=== PATIENT | female | born 1990 | race American Indian/Alaskan Native ===

== ENCOUNTER 2020-07-20 08:57 | Emergency (ER) | payer MEDICAID ==
--- NOTE | 2020-07-20 09:33 | Event Note ---
ED Screening Note Date of service: 07/20/20 Time: 09:29 ED Screening Note: 30-year-old female presents to the ER today complaint of vaginal bleeding. Patient states that last menstrual cycle was sometime in May. She missed her June menstrual cycle and therefore took a home test. She states that she had 2+ home test. Based on a menstrual cycle/ after she is approximately 5 weeks . She also went to [facility] a couple days ago and had a confirmed urine test. She states that her bleeding started yesterday morning around 5 AM. She describes it as similar to a menstrual cycle with small clots. She reports associated mild intermittent cramping. She is G4, P3 Ab0. This initial assessment/diagnostic orders/clinical plan/treatment(s) is/are subject to change based on patients health status, clinical progression and re-assessment by fellow clinical providers in the ED. Further treatment and workup at subsequent clinical providers discretion. Patient/guardian urged not to elope from the ED as their condition may be serious if not clinically assessed and managed. Initial orders include: CBC, CMP, quant hCG, urinalysis, RhoGam work-up
--- NOTE | 2020-07-20 10:12 | Emergency Department Report ---
ED General Adult HPI - General Chief complaint: Vaginal Bleeding Stated complaint: VAGINAL BLEEDING Time Seen by Provider: 07/20/20 09:25 Source: patient Mode of arrival: Ambulatory Limitations: No Limitations - History of Present Illness Initial comments: Patient is a 30-year-old female who was last menstrual cycle was 5 weeks ago who presents to the emergency department for evaluation of vaginal bleeding since 3 Kwesi yesterday. Patient notes blood and clots, states she took 3 tests which were all positive several days ago, then took 2 more yesterday which were both negative. Patient denies abdominal pain, denies nausea vomiting diarrhea, denies fever, denies dysuria patient is G4, P3 - Related Data Allergies Allergy/AdvReac Type Severity Reaction Status Date / Time No Known Allergies Allergy Unverified 07/20/20 09:01 ED Review of Systems ROS: Stated complaint: VAGINAL BLEEDING Other details as noted in HPI Comment: All other systems reviewed and negative ED Past Medical Hx - Past Medical History Previous Medical History?: No - Surgical History Past Surgical History?: No - Social History Smoking Status: Never Smoker Substance Use Type: None ED Physical Exam - General Limitations: No Limitations General appearance: alert, in no apparent distress - Head Head exam: Present: atraumatic, normocephalic - Eye Eye exam: Present: normal appearance - ENT ENT exam: Present: mucous membranes moist - Neck Neck exam: Present: normal inspection - Respiratory Respiratory exam: Present: normal lung sounds bilaterally. Absent: respiratory distress - Cardiovascular Cardiovascular Exam: Present: regular rate, normal rhythm. Absent: systolic murmur, diastolic murmur, rubs, gallop - GI/Abdominal GI/Abdominal exam: Present: soft, normal bowel sounds - Extremities Exam Extremities exam: Present: normal inspection - Back Exam Back exam: Present: normal inspection - Neurological Exam Neurological exam: Present: alert, oriented X3 - Psychiatric Psychiatric exam: Present: normal affect, normal mood - Skin Skin exam: Present: warm, dry, intact, normal color. Absent: rash ED Course Vital Signs 07/20/20 07/20/20 09:04 12:06 Temperature 98.1 F 98.2 F Pulse Rate 63 61 Respiratory 18 16 Rate Blood Pressure 118/81 Blood Pressure 121/72 [Right] O2 Sat by Pulse 100 100 Oximetry - Reevaluation(s) Reevaluation #1: 07/20/20 12:26 Patient reevaluated and remains no acute distress, abdomen remains soft nontender, discussed results at length with patient explaining she likely had miscarriage but confirmatory ultrasound and beta quantitative value are necessary in 48 to 72 hours. Patient states she assumed this to be the case given history of test taking at home associate with symptoms but will follow up. ED Medical Decision Making - Lab Data Result diagrams: 07/20/20 11:18 07/20/20 11:18 Labs 07/20/20 07/20/20 07/20/20 10:23 11:18 11:18 WBC 4.0 L RBC 4.05 Hgb 12.6 Hct 37.8 MCV 94 MCH 31 MCHC 33 RDW 13.7 Plt Count 350 Lymph % (Auto) 46.8 H [place] % (Auto) 7.0 Eos % (Auto) 0.7 Baso % (Auto) 0.8 Lymph # (Auto) 1.9 [place] # (Auto) 0.3 Eos # (Auto) 0.0 Baso # (Auto) 0.0 Seg Neutrophils % 44.7 Seg Neutrophils # 1.8 Sodium 138 Potassium 4.0 Chloride 105.3 Carbon Dioxide 26 Anion Gap 11 BUN 8 Creatinine 0.7 Estimated GFR > 60 BUN/Creatinine Ratio 11 Glucose 96 Calcium 8.6 Total Bilirubin 0.30 AST 15 ALT 10 Alkaline Phosphatase 80 Total Protein 7.5 Albumin 4.2 Albumin/Globulin Ratio 1.3 HCG, Quant Urine Color Grisel Urine Turbidity Cloudy Urine pH 5.0 Ur Specific [place] 1.026 Urine Protein 100 mg/dl Urine Glucose (UA) Neg Urine Ketones 20 Urine Blood Lg Urine Nitrite Neg Urine Bilirubin Neg Urine Urobilinogen < 2.0 Ur Leukocyte Esterase Neg Urine WBC (Auto) 4.0 Urine RBC (Auto) > 182.0 U Epithel Cells (Auto) 15.0 H Urine Bacteria (Auto) 1+ Urine Mucus 3+ Blood Type Screen 07/20/20 07/20/20 11:18 11:18 WBC RBC Hgb Hct MCV MCH MCHC RDW Plt Count Lymph % (Auto) [place] % (Auto) Eos % (Auto) Baso % (Auto) Lymph # (Auto) [place] # (Auto) Eos # (Auto) Baso # (Auto) Seg Neutrophils % Seg Neutrophils # Sodium Potassium Chloride Carbon Dioxide Anion Gap BUN Creatinine Estimated GFR BUN/Creatinine Ratio Glucose Calcium Total Bilirubin AST ALT Alkaline Phosphatase Total Protein Albumin Albumin/Globulin Ratio HCG, Quant 3.03 Urine Color Urine Turbidity Urine pH Ur Specific [place] Urine Protein Urine Glucose (UA) Urine Ketones Urine Blood Urine Nitrite Urine Bilirubin Urine Urobilinogen Ur Leukocyte Esterase Urine WBC (Auto) Urine RBC (Auto) U Epithel Cells (Auto) Urine Bacteria (Auto) Urine Mucus Blood Type B POSITIVE Screen TNR Vital Signs 07/20/20 07/20/20 09:04 12:06 Temperature 98.1 F 98.2 F Pulse Rate 63 61 Respiratory 18 16 Rate Blood Pressure 118/81 Blood Pressure 121/72 [Right] O2 Sat by Pulse 100 100 Oximetry Critical care attestation.: If time is entered above; I have spent that time in minutes in the direct care of this critically ill patient, excluding procedure time. ED Disposition Clinical Impression: Vaginal bleeding during Disposition: DC-01 TO HOME OR SELFCARE Is pt being admited?: No Condition: Stable Instructions: Miscarriage Additional Instructions: Follow-up with [facility] in 1 to 2 days for reevaluation and repeat blood work. Please note while you likely had a miscarriage, this cannot be proven without follow-up visit. Return to the emergency department for worsening symptoms. Referrals: PRIMARY CAREMD [Primary Care Provider] - 3-5 Days
[2020-07-20 10:38] LABS: Bacteria,Urine 1+ /HPF (Negative); Bilirubin,Urine NEG (Negative); Blood,Urine LG (Negative); Color,Urine Amber (Yellow); Mucus,Urine 3+ /HPF; Urobilinogen,Urine < 2.0 mg/dL (<2.0)
[2020-07-20 10:39] LABS: RBC,Urine > 182.0 /HPF (0.0-6.0)
--- NOTE | 2020-07-20 11:43 | Ultrasound Report ---
ULTRASOUND OBSTETRIC INDICATION / CLINICAL INFORMATION: VAG BLEEDING. TECHNIQUE: Transabdominal and Transvaginal. COMPARISON: None available. FINDINGS: No IUP visualized. Individual stripe measures 9 mm. ADNEXA: No significant abnormality. FREE FLUID: None. ADDITIONAL FINDINGS: None. IMPRESSION: 1. No visualized IUP. Follow-up beta-hCG and ultrasound recommended Signer Name: Watson Wolfe MD Signed: 07/20/2020 11:38 AM Workstation Name: [email or web address]
[2020-07-20 11:45] LABS: Basophils % (Auto) 0.8 % (0.0-1.8); Eosinophils % (Auto) 0.7 % (0.0-4.3); Hematocrit 37.8 % (30.3-42.9); Hemoglobin 12.6 gm/dl (10.1-14.3); Lymphocytes # (Auto) 1.9 K/mm3 (1.2-5.4); Lymphocytes % (Auto) 46.8 % (13.4-35.0); Mean Corpuscular HGB Conc 33 % (30-34); Mean Corpuscular Volume 94 fl (79-97); Monocytes # (Auto) 0.3 K/mm3 (0.0-0.8); Platelet Count 350 K/mm3 (140-440); Red Blood Count 4.05 M/mm3 (3.65-5.03); Red Cell Distribution Width 13.7 % (13.2-15.2)
[2020-07-20 12:06] LABS: Alanine Aminotransferase 10 units/L (7-56); Albumin 4.2 g/dL (3.9-5); Blood Urea Nitrogen 8 mg/dL (7-17); Calcium 8.6 mg/dL (8.4-10.2); Hemolysis Index 2
[2020-07-20 12:07] LABS: BUN/Creatinine Ratio 11
[2020-07-20 12:11] VITALS: BP 121/72
== END 2020-07-20 12:38 | disposition home or self-care (01) ==
LOC: ED 08:57
DX: O20.9 Hemorrhage in early pregnancy, unspecified (principal); Z3A.00 Weeks of gestation of pregnancy not specified
CPT/HCPCS: 36415; 76801; 76817; 80053; 81001; 84702; 85025; 85461; 86850; 86900; 86901

== ENCOUNTER 2020-12-02 22:05 | Emergency (ER) | payer MEDICAID ==
[2020-12-02 22:18] VITALS: BP 116/77
[2020-12-03] MEDS ORDERED: IBUPROFEN 800 MG TAB PO ONE (02:51)
[2020-12-03] MEDS ORDERED: TETANUS,DIPH,PERTUSS(ACELL) VACCINE 0.5 ML SYRINGE IM ONE (02:51)
[2020-12-03] MEDS ORDERED: ACETAMINOPHEN 500 MG TAB PO ONE (02:51)
[2020-12-03] MEDS ORDERED: LIDOCAINE (1%) 10 MG/1 ML VIAL 20 ML MDV INFILTRATI ONE (03:25)
[2020-12-03] MEDS ORDERED: NEOMY 3.5 MG/BACIT 400 UNITS/POLY B 5000 UNITS/GM OINT PACKET TP ONE (03:25)
--- NOTE | 2020-12-03 03:40 | Emergency Department Report ---
ED General Adult HPI - General Chief complaint: Laceration/Recheck/Suture Stated complaint: RT WRIST LACERATION Time Seen by Provider: 12/03/20 02:51 Source: patient Mode of arrival: Ambulatory Limitations: No Limitations - History of Present Illness Initial comments: 30-year-old [id number] female patient presents emergency department complaints of a laceration to her right wrist occurring tonight. Patient states she became frustrated and punched a mirror. No other injuries. Cannot recall last tetanus immunization. No medications prior to arrival. Denies headache, neck pain, shoulder pain, elbow pain, arm pain, paresthesias, numbness. Denies all other complaints at this time. Severity scale (0 -10): 3 - Related Data Previous Rx's Medication Instructions Recorded Last Taken Type Mupirocin [Bactroban 2%] 1 applic TP TID #1 tube 12/03/20 Unknown Rx Naproxen 500 mg PO BID #20 tablet 12/03/20 Unknown Rx Allergies Allergy/AdvReac Type Severity Reaction Status Date / Time No Known Allergies Allergy Unverified 07/20/20 09:01 ED Review of Systems ROS: Stated complaint: RT WRIST LACERATION Other details as noted in HPI Other: GENERAL: Negative for fever. CARDIOVASCULAR: Negative for chest pain. PULMONARY: Negative for shortness of breath. GASTROINTESTINAL: Negative for abdominal pain. MUSCULOSKELETAL: Negative for back pain. NEUROLOGICAL: Negative for headache. INTEGUMENTARY: Positive for laceration. ED Past Medical Hx - Past Medical History Previous Medical History?: No - Surgical History Past Surgical History?: No - Social History Smoking Status: Never Smoker Substance Use Type: None - Medications Home Medications: Home Medications Medication Instructions Recorded Confirmed Last Taken Type Mupirocin [Bactroban 2%] 1 applic TP TID #1 tube 12/03/20 Unknown Rx Naproxen 500 mg PO BID #20 tablet 12/03/20 Unknown Rx ED Physical Exam - General Limitations: No Limitations - Other Other exam information: General: Awake, appropriately interactive, no acute distress. Neck: Supple. Full range of motion intact. Cardiovascular: Normal peripheral perfusion. Pulmonary: No respiratory distress. Patient is speaking normally without use of accessory muscles. Skin: 2.5 cm horizontal laceration noted to the volar aspect of the right wrist involving skin and subcutaneous tissue. Skin tear noted to the lateral edge of the wound. Good hemostasis. Wound does not appear grossly contaminated. No evidence of retained foreign body. Strong radial pulse. Distal neurovascular and motor/sensory function intact. Neurological: No facial asymmetry. Speech is clear. Follows commands. Patient is alert and oriented. Musculoskeletal: Moves all four extremities spontaneously with normal range of motion. Psych: Cooperative. Appropriate mood and affect. ED Course Vital Signs 12/02/20 22:16 Temperature 98.9 F Pulse Rate 70 Respiratory 18 Rate Blood Pressure 116/77 O2 Sat by Pulse 100 Oximetry - Procedure Description Procedures done: Verbal consent was obtained from the patient. The site was identified. The area was prepped and draped in sterile fashion. Hand hygiene was observed. The area was cleansed with saline and Betadine. The wound was irrigated extensively. Lidocaine 1% was used for anesthetic. Approximately 6 mL were infiltrated along the wound edges. The wound was explored to its depth without evidence of retained foreign body. Four 4-0 Prolene sutures were placed in a simple interrupted fashion. Dressing was placed. Antibiotic ointment was applied. Repeat distal neurovascular and motor/sensory function was intact. Patient tolerated procedure well without complications. ED Medical Decision Making - Medical Decision Making Differential diagnosis including but not limited to: laceration, abrasion, skin tear, retained foreign body After the patient was brought to the acute care area of the emergency department, she began exhibiting verbally aggressive behavior. Security was called to the patient's room after raising her voice at multiple members of the hospital staff, using profane language. It was deemed unsafe to attempt performing a procedure while the patient was agitated, and therefore patient's disposition was delayed in order to allow time for her to calm down before proceeding with laceration repair. Patient presents to the emergency department with complaints of an accidental laceration to her right wrist after she became angry and punched a mirror. No radiographic evidence of retained foreign body. Tetanus updated in the emergency department. Laceration repaired without complications. See procedure note for details. Small skin tear adjacent to the laceration was left to heal by secondary intention. Patient will be discharged home with appropriate analgesics, topical antibiotics, and referral to primary care provider for close outpatient follow-up. Patient expressed understanding and is agreeable to plan of care. Wound care precautions discussed. Strict return precautions provided. Repeat exam is unremarkable and benign. History, exam, diagnostic testing, and current condition do not suggest worrisome pathology to warrant further testing, continued ED treatment, admission, or surgical evaluation at this point. Given the low probability of a significant medical illness, it would be more likely to result in harm than benefit to perform further testing at this stage. Discussed findings, presumptive diagnosis, need for follow-up and specific signs/symptoms that should prompt immediate return to the emergency department. Instructions were explained in detail to the patient in addition to giving written discharge information. Patient expressed understanding and was given the opportunity to ask questions, all of which were satisfactorily answered prior to discharge home. Critical care attestation.: If time is entered above; I have spent that time in minutes in the direct care of this critically ill patient, excluding procedure time. ED Disposition Clinical Impression: Laceration of right wrist Qualifiers: Encounter type: initial encounter Qualified Code(s): S61.511A - Laceration without foreign body of right wrist, initial encounter Disposition: TO HOME OR SELFCARE Is pt being admited?: No Does the pt Need Aspirin: No Condition: Stable Instructions: Laceration Care, Adult, [id number] Additional Instructions: Take Tylenol every 4 hours as needed for pain. Take Naprosyn twice daily with food as needed for pain. Apply Bactroban ointment to affected area 3 times daily. Keep wound clean and covered. Change dressing daily. Follow-up with primary care provider for suture removal in 7 to 10 days. Call tomorrow to schedule an appointment. See referral information below. Return to the emergency department immediately for new or worsening symptoms. Prescriptions: Mupirocin [Bactroban 2%] 1 applic TP TID #1 tube Naproxen 500 mg PO BID #20 tablet Referrals: NICOLÁS ACUÑA MD [Staff Physician] - 3-5 Days [facility] [Outside] - 3-5 Days [facility] [Outside] - 3-5 Days [facility] [Outside] - 3-5 Days [facility] [Provider Group] - 3-5 Days Forms: Work/School Release Form(ED) Time of Disposition: 04:20
--- NOTE | 2020-12-03 03:48 | XRay Report ---
XR wrist 3+V RT INDICATION / CLINICAL INFORMATION: punched glass; (+) laceration, r/o foreign body. COMPARISON: None available. FINDINGS: No acute fracture. No foreign body. Normal alignment. Joint spaces are preserved. No destructive os seous lesion or suspicious periosteal reaction. Impression: 1.No acute fracture. No foreign body. Signer Name: Pito Eden MD Signed: 12/03/2020 3:44 AM Workstation Name: [id number]
== END 2020-12-03 04:30 | disposition home or self-care (01) ==
LOC: ED 22:05
DX: S61.511A Laceration without foreign body of right wrist, initial encounter (principal); W22.8XXA Striking against or struck by other objects, initial encounter; Y93.89 Activity, other specified; Y92.89 Other specified places as the place of occurrence of the external cause; Y99.8 Other external cause status
CPT/HCPCS: 12041; 73110; 90471; 90715; 99283; A6250; 96374

== ENCOUNTER 2021-10-31 15:50 | Emergency (ER) | payer MEDICAID | END 2021-10-31 16:00 | disposition left against medical advice (07) | LOC: ED 15:50 | DX: O26.892 Other specified pregnancy related conditions, second trimester (principal); Z3A.15 15 weeks gestation of pregnancy; M25.559 Pain in unspecified hip; Z53.21 Procedure and treatment not carried out due to patient leaving prior to being seen by health care provider ==